=== PATIENT | male | born 2000 | race Caucasian/White ===

== ENCOUNTER 2022-10-01 14:22 | Emergency (ER) | payer OTHER ==
[~2022-10-01] VITALS: Ht 182.9 cm; Wt 90.7 kg
[2022-10-01] VITALS (7 sets, daily range): BP systolic 115–131; BP diastolic 60–80
[2022-10-01] MEDS ORDERED: NAPROXEN500 MG PO (15:48)
== END 2022-10-01 16:41 | disposition home or self-care (01) | DRG 563 ==
LOC: ED 14:22
PROC: 2W3EX1Z Immobilization of Right Hand using Splint (ICD-10-PCS; principal; 2022-10-01)
DX: S62.316A Displaced fracture of base of fifth metacarpal bone, right hand, initial encounter for closed fracture (principal); W22.09XA Striking against other stationary object, initial encounter